=== PATIENT | male | born 1955 | race Caucasian/White ===

== ENCOUNTER 2016-05-14 09:30 | Day surgery (SDC) | payer MEDICARE ==
[~2016-05-14] VITALS: Ht 172.7 cm; Wt 93.0 kg
[2016-05-14] VITALS (14 sets, daily range): BP systolic 109–147; BP diastolic 70–101
[~2016-05-14 09:30] MED LIST: AMLODIPINE10 MG PO; ASPIRIN 81MG TA81 MG PO; CLOPIDOGREL75 M1 PO; COREG25 MG PO; CYMBALTA30 MG PO; LIPITOR40 MG PO; LISINOPRIL40 MG PO; PRAVACHOL 20MG.20 MG PO
--- NOTE | 2016-05-14 11:33 | Procedure Note ---
Procedure detail Date of procedure: 05/14/16 Anesthesiologist: Sathish Ballesteros M.D. 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 He has degenerative disease of lumbar spinal lumbar radiculopathy symptoms. He also has increasing abdominal pain due to extensive surgery with multiple abdominal adhesions with permanent colostomy in place. He has failed all conservative therapy including physical therapy, injections, oral medications and he is not a surgical candidate. His had a successful psychological evaluation. He presents for intrathecal morphine pump trial today. Procedure detail: Informed consent was obtained and the risk and benefits of the procedure was explained to the patient. Patient was taken to the procedure room. He was placed prone on the procedure table. He was prepped and draped in sterile fashion. C- arm fluoroscopy was used to view the lumbar spine. The skin and septated tissues were anesthetized using lidocaine. A 17-gauge spinal needle was inserted and advanced into the L5-S1 interspace until clear CSF was obtained. After this intrathecal catheter was inserted and advanced to the T12 vertebral body. The needle was withdrawn. We were able to freely withdraw clear CSF through the catheter. The catheter was secured in place and the patient was brought back to recovery in stable condition. After the patient was in recovery we bolused with 0.5 mg intrathecal morphine. This was done over 30 minutes. Plan disposition: We will follow-up with this patient throughout the day. Successes indicated by greater than 50 percent relief in pain symptoms and toleration of side effects. Plan and disposition: Patient was seen this afternoon. He did work with physical therapy. There is substantial improvement in function. Patient was 60-70 percent better. He was able to walk better. He was able to sit with no pain and he was breathing better. Overall his pain symptoms went down 60-70 percent. He wants to proceed with permanent placement. He did have some nausea and vomiting associated this afternoon. He was treated with Zofran 4 mg IV. We will plan on permanent placement and seek approval for permanent placement intrathecal pain pump. We will start with Dilaudid at 0.1 mg per day with PTC boluses of 0.01 mg up to 3 times a day. Concentration will be Dilaudid 1 mg per mL. at [id number]
[2016-07-09] MEDS ORDERED: DILAUDID1 MG/ML IT (09:23)
== END 2016-05-14 17:02 | disposition home or self-care (01) ==
LOC: PM 09:30
PROC: 3E0R33Z Introduction of Anti-inflammatory into Spinal Canal, Percutaneous Approach (ICD-10-PCS; principal; 2016-05-14)
PROC: 3E0R3BZ Introduction of Anesthetic Agent into Spinal Canal, Percutaneous Approach (ICD-10-PCS; 2016-05-14)
DX: M51.16 Intervertebral disc disorders with radiculopathy, lumbar region (principal)
CPT/HCPCS: J2405; Q9966

== ENCOUNTER → 2016-09-11 | Outpatient (CLI) | payer MEDICARE, MEDICAID ==
[~2016-09-11] MED LIST changes: +DILAUDID1 MG/ML IT
[2016-09-12 10:41] LABS: AMPHETAMINES/METAMPHETAMINES NEGATIVE ng/mL (<1000)
[2016-09-15 18:39] LABS: Opiates Negative (Cutoff=100)
== END ==
LOC: LAB 16:47
PROVIDERS: Nurse Anesthetist, Certified Registered
DX: Z79.899 Other long term (current) drug therapy (principal)

== ENCOUNTER 2017-01-08 14:05 | Day surgery (SDC) | payer MEDICARE, MEDICAID ==
[~2017-01-08] VITALS: Ht 172.7 cm; Wt 90.7 kg
[2017-01-08 14:59] VITALS: BP 152/77
[2017-01-08 15:32] VITALS: BP 170/83
[2017-01-08 15:35] VITALS: BP 170/83
--- NOTE | 2017-01-08 15:46 | Procedure Note ---
Procedure detail Date of procedure: 01/08/17 Anesthesiologist: Suraj Reddy Complications: None Pre-procedure diagnosis: Degenerative disease lumbar spine multiple levels. History of colorectal cancer with active colostomy. Post-procedure diagnosis: Same. Indications for procedure: Very pleasant 61-year-old white male were treating with intrathecal pain pump for chronic pain syndrome secondary to degenerative disc disease lumbar spine as well as active colostomy as result of colorectal cancer with treatment. Patient seems to be doing very well with his current pump settings. His pump contains hydromorphone 50 mg/mL and bupivacaine 10 mg/mL. The pump rates are hydromorphone 2.5 mg per day and bupivacaine 1.6 mg per day. Patient not using all of his PTC's at this time. I encouraged the patient uses PT cc when needed. Procedure detail: Details of procedure is going to the patient. The patient taken to procedure room placed in the sitting position. The area over the pump was cleansed using chlorhexidine as a cleansing solution. The pump was accessed with ease using a 22-gauge needle from the refill kit. 6.5 mL of solution was withdrawn from the pump and discarded properly. The pump was then filled with 20 mL of hydromorphone 15 mg/mL. And bupivacaine 10 mg/mL the pump was interrogated. The rate was continued at hydromorphone 2.5 mg per day and bupivacaine 1.6 mg per day. Objective: Patient's awake alert oriented 3. In no acute distress. Flexion extension lumbar spine somewhat guarded secondary to pain. Deep tendon reflexes upper lower extremities normal. Motor strength upper and lower extremities normal. There is no gross sensory deficit. Gait is normal. Positive straight leg raise test at 30 degrees bilaterally. Plan and disposition: Patient was reevaluated 10 minutes post procedure. He's doing very well. Return to see us in the pain clinic further evaluation. at [id number]
[2017-01-08 15:48] VITALS: BP 142/81
== END 2017-01-08 15:49 ==
LOC: PM 14:05
DX: M51.36 Other intervertebral disc degeneration, lumbar region (principal); Z85.038 Personal history of other malignant neoplasm of large intestine; Z93.3 Colostomy status